=== PATIENT | female | born 1960 | race Caucasian/White ===

== ENCOUNTER 2022-07-23 15:33 | Outpatient (CLI) | payer OTHER, BC | END 2022-07-23 15:34 | disposition home or self-care (01) | LOC: CSHMRI 15:33 | PROVIDERS: ATTEND Family Medicine | DX: R51.9 Headache, unspecified (principal); I67.9 Cerebrovascular disease, unspecified | CPT/HCPCS: 70551 ==

== ENCOUNTER 2023-09-20 08:13 | Outpatient (CLI) | payer OTHER, BC | END 2023-09-20 08:14 | disposition home or self-care (01) | LOC: CSHMAMMO 08:13 | PROVIDERS: ATTEND Family Medicine | DX: Z12.31 Encounter for screening mammogram for malignant neoplasm of breast (principal) | CPT/HCPCS: 77063; 77067 ==

== ENCOUNTER 2023-10-25 09:04 | Outpatient (CLI) | payer OTHER, BC | END 2023-10-25 09:05 | disposition home or self-care (01) | LOC: CSHRAD 09:04 | PROVIDERS: ATTEND Internal Medicine Rheumatology | DX: M25.551 Pain in right hip (principal); M25.50 Pain in unspecified joint; M16.0 Bilateral primary osteoarthritis of hip; M19.09 Primary osteoarthritis, other specified site | CPT/HCPCS: 73523 ==

== ENCOUNTER 2024-09-22 09:01 | Outpatient (CLI) | payer OTHER, MEDICARE | END 2024-09-22 09:02 | disposition home or self-care (01) | LOC: CSHMAMMO 09:01 | PROVIDERS: ATTEND Family Medicine | DX: Z12.31 Encounter for screening mammogram for malignant neoplasm of breast (principal) | CPT/HCPCS: 77063; 77067 ==